=== PATIENT | male | born 1960 | race African-American/Black ===

== ENCOUNTER 2023-10-21 19:22 | Emergency (ER) | payer OTHER ==
[2023-10-21] MEDS ORDERED: LORazepam 2 MG/ML INJ IV PRN ×3 (19:40)
[2023-10-21 20:11] VITALS: RESP 16
[2023-10-21 20:17] LABS: Basophils % (A) 0 %; Eosinophils # (A) 0.2 k/uL (0-0.7); Eosinophils % (A) 5 %; HCT 47.1 % (39.0-53.0); HGB 15.5 gm/dL (13.0-17.5); Lymphocytes % (A) 20 %; MCH 32.7 pg (25.0-35.0); MCV 99.2 fL (80.0-100.0); Mean Platelet Volume 9.1; Monocytes # (A) 0.2 k/uL (0-1.0); Monocytes % (A) 3 %; Neutrophils # (A) 3.4 k/uL (1.3-7.7); Neutrophils % (A) 70 %; Platelet Count 158 k/uL (150-450); RBC 4.75 m/uL (4.30-5.90); RDW 13.5 % (11.5-15.5); WBC 4.9 k/uL (3.8-10.6)
[2023-10-21 20:23] LABS: Appearance,Urine Clear (Clear); Bilirubin,Urine Negative (Negative); Blood,Urine Negative (Negative); Color,Urine Colorless; Glucose,Urine (UA) Negative (Negative); Ketones,Urine Negative (Negative); Leukocyte Esterase,Urine Negative (Negative); Nitrite,Urine Negative (Negative); Protein,Urine Negative (Negative); Specific Gravity,Urine 1.004 (1.001-1.035); Urobilinogen,Urine <2.0 mg/dL (<2.0)
[2023-10-21 20:28] LABS: ALT 148 U/L (4-49); AST 187 U/L (17-59); African American GFR (CKD) >90 (>60 ml/min/1.73 sqM); Albumin 3.7 g/dL (3.5-5.0); Alcohol <10 mg/dL; Alkaline Phosphatase 181 U/L (38-126); Amylase 67 U/L (30-110); Anion Gap 5 mmol/L; Blood Urea Nitrogen 7 mg/dL (9-20); Calcium 9.3 mg/dL (8.4-10.2); Carbon Dioxide 27 mmol/L (22-30); Chloride 103 mmol/L (98-107); Glucose 129 mg/dL (74-99); Lipase 181 U/L (23-300); Non-African American GFR(CKD) >90 (>60 ml/min/1.73 sqM); Potassium 3.8 mmol/L (3.5-5.1); Sodium 135 mmol/L (137-145); Total Bilirubin 0.6 mg/dL (0.2-1.3); Total Protein 6.6 g/dL (6.3-8.2)
[2023-10-21] MEDS: KETOROLAC 15 MG/ML 1 ML VIAL IVP STA (20:46)
[2023-10-21] MEDS: ONDANSETRON 4 MG/2 ML VIAL IVP STA (20:46)
[2023-10-21] MEDS: SODIUM CHLORIDE 0.9% 1,000 ML IV STA (20:47)
[2023-10-21] MEDS: LORazepam 2 MG/ML INJ IV STA (20:47)
[2023-10-21] MEDS: PANTOPRAZOLE 40 MG/10 ML VIAL IVP STA (20:47)
[2023-10-21] MEDS: THIAMINE 100 MG/ML 2 ML VIAL IM STA (20:50)
--- NOTE | 2023-10-21 20:55 | XR ---
EXAMINATION TYPE: XR chest 1V portable DATE OF EXAM: 10/21/2023 8:35 PM CLINICAL INDICATION:Male, 63 years old with history of abdominal pain; [facility] COMPARISON: None TECHNIQUE: XR chest 1V portable Frontal view of the chest. FINDINGS: Lungs/Pleura: There is no evidence of pleural effusion, focal consolidation, or pneumothorax. Pulmonary vascularity: Unremarkable. Heart/mediastinum: Cardiomediastinal silhouette is unremarkable. Musculoskeletal: No acute osseous pathology. IMPRESSION: No acute cardiopulmonary disease/process.
--- NOTE | 2023-10-21 21:31 | ED ---
General Adult HPI - General Chief complaint: Weakness Stated complaint: Withdrawal Time Seen by Provider: 10/21/23 19:28 Source: patient, EMS, RN notes reviewed, old records reviewed Mode of arrival: EMS Limitations: no limitations - History of Present Illness Initial comments: Patient is a 63-year-old male who presents emergency department with opiate withdrawals. [facility]. Patient's only complaint is that he is cold. States he does drink alcohol when he can but primarily snorts heroin. No IV drug use. Has no complaints other than feeling cold with 1 or 2 episodes of nonbloody diarrhea. Denies any nausea or vomiting or abdominal pain. States this is typical when he is withdrawing from heroin. Has no other acute complaints at this time. Presents for further evaluation. Denies any history of alcohol withdrawals.Patient last used heroin 2 days ago. Last drink alcohol 2 days ago. - Related Data Allergies Allergy/AdvReac Type Severity Reaction Status Date / Time nut - unspecified Allergy Anaphylaxis Verified 10/21/23 19:50 tetracycline Allergy Anaphylaxis Verified 10/21/23 19:50 tree nut Allergy Anaphylaxis Verified 10/21/23 19:50 nuts Allergy Anaphylaxis Uncoded 10/21/23 19:50 Review of Systems ROS Statement: Those systems with pertinent positive or pertinent negative responses have been documented in the HPI. Review of Systems: CONST: Endorses feeling cold EYES: Denies blurry vision ENT: Denies nasal congestion C/V: Denies Chest pain RESP: Denies shortness of breath GI: Denies abdominal pain : Denies dysuria SKIN: Denies rash. MSK: Denies joint pain. NEURO: Denies headache ROS Other: All systems not noted in ROS Statement are negative. Past Medical History History of Any Multi-Drug Resistant Organisms: None Reported Past Psychological History: No Psychological Hx Reported Smoking Status: Current every day smoker Past Alcohol Use History: Heavy Past Drug Use History: Heroin General Exam - General Exam Comments Initial Comments: General: Appears in no acute distress. HEAD: Normal with no signs of head trauma. EYES: PERRLA, EOMI, conjunctiva normal, no discharge. ENT: Hearing grossly intact, normal oropharynx. RESPIRATORY: Clear breath sounds bilaterally. No wheezes, rales, or rhonchi. C/V: Regular rate and rhythm. S1 and S2 auscultated, no edema, peripheral pulses 2+ and intact throughout ABD: Abd is soft, nontender, nondistended EXT: Normal range of motion, no obvious deformity SKIN: No rashes or lesions observed on exposed skin. NEURO: Alert and oriented x 4. Cranial nerves II-XII intact. No focal sensory or strength deficits. No obvious tongue fasciculations. No tremors. No significant findings concerning for alcohol withdrawals. Limitations: no limitations Course Vital Signs 10/21/23 10/21/23 19:39 21:44 Temperature 98.1 F 98.6 F Pulse Rate 82 91 Respiratory 16 16 Rate Blood Pressure 139/89 134/91 O2 Sat by Pulse 98 98 Oximetry Medical Decision Making - Medical Decision Making Was pt. sent in by a medical professional or institution (, [facility], DIRECTOR CREDIT RISK, urgent care, hospital, or shelter...) When possible be specific @ -No Did you speak to anyone other than the patient for history (EMS, parent, family, police, friend...)? What history was obtained from this source @ -No Did you review nursing and triage notes (agree or disagree)? Why? @ -I reviewed and agree with nursing and triage notes Were old charts reviewed (outside hosp., previous admission, EMS record, old EKG , old radiological studies, urgent care reports/EKG's, shelter records)? Report findings @ -Old charts reviewed Differential Diagnosis (chest pain, altered mental status, abdominal pain women, abdominal pain men, vaginal bleeding, weakness, fever, dyspnea, syncope, headache, dizziness, GI bleed, back pain, seizure, CVA, palpatations, mental health, musculoskeletal)? @ -Opiate withdrawals, dehydration, electrolyte abnormality. This list is not all inclusive. EKG interpreted by me (3pts min.). @ -As above X-rays interpreted by me (1pt min.). @ -Chest x-ray reveals no obvious acute cardiopulmonary process. CT interpreted by me (1pt min.). @ -None done U/S interpreted by me (1pt. min.). @ -None done What testing was considered but not performed or refused? (CT, X-rays, U/S, labs)? Why? @ -None What meds were considered but not given or refused? Why? @ -None Did you discuss the management of the patient with other professionals (professionals i.e. , PA, DIRECTOR CREDIT RISK, lab, RT, psych nurse, social media executive, merchandising assistant, teacher, ordnance officer, case aide)? Give summary @ -No Was smoking cessation discussed for >3mins.? @ -No Was critical care preformed (if so, how long)? @ -No Were there social determinants of health that impacted care today? How? (Homelessness, low income, unemployed, alcoholism, drug addiction, transportation, low edu. Level, literacy, decrease access to med. care, [facility], rehab)? @ -No Was there de-escalation of care discussed even if they declined (Discuss DNR or withdrawal of care, Hospice)? DNR status @ -No What co-morbidities impacted this encounter? (DM, HTN, Smoking, COPD, CAD, Cancer, CVA, ARF, Chemo, Hep., AIDS, mental health diagnosis, sleep apnea, morbid obesity)? @ -None Was patient admitted / discharged? Hospital course, mention meds given and route, prescriptions, significant lab abnormalities, going to OR and other pertinent info. @ -Patient presents with opiate withdrawal symptoms. We will obtain basic workup including labs, EKG, chest x-ray. His only acute complaint at this time is feeling cold. He will be given a dose of Ativan. Vital signs are all within acceptable limits. No signs of alcohol withdrawal at this time however we will obtain a CIWA for formal scoring, and it was found to be at worst 2. Laboratory studies showed likely chronic mildly elevated LFTs but no other obvious acute process. EKG shows no signs of acute ischemia. Chest x-ray unremarkable. On reevaluation, patient is feeling improved after warm blankets. He will be discharged back to [facility] at this time where they can further manage the patient's heroin withdrawal. He was in agreement this plan. I instructed the patient to follow up with their PCP in the next 1-3 days. I explained that the patient should return to the emergency department if they experience any worsening symptoms. Strict return precautions were discussed with the patient. The patient expressed understanding of these instructions. I answered all questions that the patient had. The patient was discharged home in good condition with their prescriptions and follow up information. Undiagnosed new problem with uncertain prognosis? @ -No Drug Therapy requiring intensive monitoring for toxicity (Heparin, Nitro, Insulin, Cardizem)? @ -No Were any procedures done? @ -No Diagnosis/symptom? @ -Opiate withdrawals Acute, or Chronic, or Acute on Chronic? @ -Acute Uncomplicated (without systemic symptoms) or Complicated (systemic symptoms)? @ -Complicated Side effects of treatment? @ -No Exacerbation, Progression, or Severe Exacerbation? @ -No Poses a threat to life or bodily function? How? (Chest pain, USA, CT, pneumonia, PE, COPD, DKA, ARF, appy, cholecystitis, CVA, Diverticulitis, Homicidal, Suicidal, threat to staff... and all critical care pts) @ -No - Lab Data Result diagrams: 10/21/23 20:03 10/21/23 20:03 Lab Results 10/21/23 10/21/23 10/21/23 Range/Units 19:51 20:03 20:03 WBC 4.9 (3.8-10.6) k/uL RBC 4.75 (4.30-5.90) m/uL Hgb 15.5 (13.0-17.5) gm/dL Hct 47.1 (39.0-53.0) % MCV 99.2 (80.0-100.0) fL MCH 32.7 (25.0-35.0) pg MCHC 33.0 (31.0-37.0) g/dL RDW 13.5 (11.5-15.5) % Plt Count 158 (150-450) k/uL MPV 9.1 Neutrophils % 70 % Lymphocytes % 20 % Monocytes % 3 % Eosinophils % 5 % Basophils % 0 % Neutrophils # 3.4 (1.3-7.7) k/uL Lymphocytes # 1.0 (1.0-4.8) k/uL Monocytes # 0.2 (0-1.0) k/uL Eosinophils # 0.2 (0-0.7) k/uL Basophils # 0.0 (0-0.2) k/uL Sodium 135 L (137-145) mmol/L Potassium 3.8 (3.5-5.1) mmol/L Chloride 103 (98-107) mmol/L Carbon Dioxide 27 (22-30) mmol/L Anion Gap 5 mmol/L BUN 7 L (9-20) mg/dL Creatinine 0.70 (0.66-1.25) mg/dL Est GFR (CKD-EPI)AfAm >90 (>60 ml/min/1.73 sqM) Est GFR (CKD-EPI)NonAf >90 (>60 ml/min/1.73 sqM) Glucose 129 H (74-99) mg/dL Calcium 9.3 (8.4-10.2) mg/dL Total Bilirubin 0.6 (0.2-1.3) mg/dL AST 187 H (17-59) U/L ALT 148 H (4-49) U/L Alkaline Phosphatase 181 H (38-126) U/L Total Protein 6.6 (6.3-8.2) g/dL Albumin 3.7 (3.5-5.0) g/dL Amylase 67 (30-110) U/L Lipase 181 (23-300) U/L Urine Color Colorless Urine Appearance Clear (Clear) Urine pH 8.0 (5.0-8.0) Ur Specific [place] 1.004 (1.001-1.035) Urine Protein Negative (Negative) Urine Glucose (UA) Negative (Negative) Urine Ketones Negative (Negative) Urine Blood Negative (Negative) Urine Nitrite Negative (Negative) Urine Bilirubin Negative (Negative) Urine Urobilinogen <2.0 (<2.0) mg/dL Ur Leukocyte Esterase Negative (Negative) Serum Alcohol <10 mg/dL - EKG Data -: EKG Interpreted by Me EKG Comments: 12-lead Electrocardiogram Interpretation Note EKG was reviewed and interpreted by myself. 12-lead ECG performed at 1948 is interpreted by me as revealing normal sinus rhythm at a rate of 78 beats per minute. [place] is normal. [place] interval is 125 ms, QRS duration 77 ms, QTc is 410 ms.. There were no ST or T wave abnormalities to suggest myocardial ischemia or injury. R wave progression across the precordium was satisfactory. By my interpretation this EKG is non-diagnostic for acute ischemia. Disposition Clinical Impression: Opiate withdrawal Disposition: HOME SELF-CARE Condition: Fair Is patient prescribed a controlled substance at d/c from ED?: No Referrals: None,Stated [Primary Care Provider] - 1-2 days Time of Disposition: 21:31
[2023-10-21 21:57] VITALS: BP 134/91; PULSE 91; TEMP 98.6
[2023-10-22] MEDS ORDERED: THIAMINE 100 MG TAB PO SCH (09:00)
== END 2023-10-21 22:27 | disposition home or self-care (01) ==
LOC: EC 19:22
DX: F11.23 Opioid dependence with withdrawal (principal); F17.200 Nicotine dependence, unspecified, uncomplicated; Z88.1 Allergy status to other antibiotic agents; Z91.018 Allergy to other foods
CPT/HCPCS: 99285; 96374; 96375 ×3; 96372; 36415; 93005; 80053; 82150; 83690; 85025; 81003; 71045; G0480; J2060; J3411; J2405; J1885; C9113; 80320